=== PATIENT | male | born 1960 | race African-American/Black ===

== ENCOUNTER 2021-06-01 00:05 | Emergency (ER) | payer MEDICAID ==
[~2021-06-01] VITALS: Ht 167.6 cm; Wt 58.0 kg
[~2021-06-01 00:05] MED LIST: DIPH1TAB PO; DIPH1TAB24 PO; ONDA4TAB5 MT; [UNRECOGNIZED DRUG - CODE] PO
[2021-06-01] MEDS ORDERED: ONDANSETRON HCL 4MG/2ML INJ IV STA (01:27)
[2021-06-01] MEDS ORDERED: MORPHINE SULFATE 4 MG/ML CPJ (NOT FOR IM USE) IV STA (01:27)
[2021-06-01] MEDS ORDERED: SODIUM CHLORIDE 0.9% 1,000 ML IV ONE (01:30)
[2021-06-01 01:48] LABS: HEMATOCRIT. 23.3 % (42.0-52.0); HEMOGLOBIN. 7.7 g/dL (14.0-18.0); MEAN CORPUSCULAR HEMOGLOBIN 27.3 pg (28.0-32.0); MEAN CORPUSCULAR VOLUME 82.7 fL (80.0-94.0); MEAN PLATELET VOLUME 7.7 fl (7.4-10.4); PLATELET 368 x1000/uL (130-400); RED BLOOD CELL COUNT 2.81 mill/uL (4.7-6.1); RED CELL DISTRIBUTION WIDTH 19.9 % (11.6-14.6)
[2021-06-01 01:51] LABS: CHLORIDE 94 mEq/L (98-107)
[2021-06-01 01:58] LABS: INR 1.5; PROTHROMBIN TIME 15.6 sec (9.6-11.0)
[2021-06-01 04:21] LABS: CLARITY URINE CLOUDY (CLEAR); COLOR URINE ORANGE (YELLOW); KETONES URINE TRACE (NEGATIVE); LEUKOCYTE ESTERASE URINE 1+ (NEGATIVE); NITRITE URINE NEGATIVE (NEGATIVE); OCCULT BLOOD URINE 3+ (NEGATIVE); PROTEIN URINE TRACE (NEGATIVE); SPECIFIC GRAVITY URINE 1.024 (1.005-1.030); UROBILINOGEN URINE 0.2 E.U./dL (0.2-1.0)
[2021-06-01] MEDS ORDERED: MORPHINE SULFATE 4 MG/ML CPJ (NOT FOR IM USE) IV ONE ×2 (05:15→09:45)
[2021-06-01] MEDS ORDERED: METR500T MT (05:15)
[2021-06-01] MEDS ORDERED: CIPR-263 MT (05:15)
[2021-06-01] MEDS ORDERED: ONDANSETRON HCL 4MG/2ML INJ IV ONE (05:15)
[2021-06-01] MEDS ORDERED: TOPUD MT (05:15)
[2021-06-01 05:54] LABS: PLATELET ESTIMATE NORMAL
[2021-06-01] MEDS ORDERED: KCL 20MEQ/100ML PREMIX 100 ML IV ONE (06:00)
[2021-06-01 11:07] VITALS: BP 91/61
== END 2021-06-01 11:37 | disposition home or self-care (01) ==
LOC: ER 00:05
DX: N30.00 Acute cystitis without hematuria (principal); Z86.59 Personal history of other mental and behavioral disorders
CPT/HCPCS: 36415; 74176; 80053; 81003; 83690; 85025; 85610; 96361; 96365; 96375; 96376; 99285; J2270; J2405; J3480; J7030